=== PATIENT | female | born 1995 | race Caucasian/White ===

== ENCOUNTER 2016-10-28 15:24 | Emergency (ER) | payer MEDICAID ==
[~2016-10-28] VITALS: Ht 162.6 cm; Wt 57.6 kg
[~2016-10-28 15:24] MED LIST: AUGMENTIN PO; AURALGAN LEFT EAR; D ME PO; IBUP-1481 PO
--- NOTE | 2016-10-28 16:30 | NUR ---
Patient discharged to home in stable conditon. Written and verbal after care instructions given. Patient verbalizes understanding of instructions.
== END 2016-10-28 16:31 | disposition home or self-care (01) ==
LOC: ER 15:24
DX: S90.112A Contusion of left great toe without damage to nail, initial encounter (principal); X58.XXXA Exposure to other specified factors, initial encounter; Y93.89 Activity, other specified; Y99.8 Other external cause status; Y92.89 Other specified places as the place of occurrence of the external cause
CPT/HCPCS: 73630; A4663

== ENCOUNTER 2017-01-07 13:49 | Emergency (ER) | payer MEDICAID ==
[~2017-01-07] VITALS: Ht 162.6 cm; Wt 57.6 kg
[~2017-01-07 13:49] MED LIST changes: -AUGMENTIN PO; -AURALGAN LEFT EAR; -D ME PO; -IBUP-1481 PO; +IBUP-1953 PO
--- NOTE | 2017-01-07 14:47 | NUR ---
Patient discharged to home in stable conditon. Written and verbal after care instructions given. Patient verbalizes understanding of instructions.
== END 2017-01-07 14:48 | disposition home or self-care (01) ==
LOC: ER 13:53
DX: S63.619A Unspecified sprain of unspecified finger, initial encounter (principal); X58.XXXA Exposure to other specified factors, initial encounter; Y93.89 Activity, other specified; Y99.8 Other external cause status; Y92.89 Other specified places as the place of occurrence of the external cause
CPT/HCPCS: 73130; A4663

== ENCOUNTER 2017-08-05 20:50 | Emergency (ER) | payer MEDICAID ==
--- NOTE | 2017-08-05 21:55 | NUR ---
CALLED FOR PT NO ANS LWBT
== END 2017-08-05 23:13 | disposition left against medical advice (07) ==
LOC: ER 20:52
DX: Z53.21 Procedure and treatment not carried out due to patient leaving prior to being seen by health care provider (principal)

== ENCOUNTER 2017-08-06 11:43 | Emergency (ER) | payer MEDICAID ==
[~2017-08-06] VITALS: Ht 162.6 cm; Wt 59.0 kg
--- NOTE | 2017-08-06 11:59 | NUR ---
Patient discharged to home in stable conditon. Written and verbal after care instructions given. Patient verbalizes understanding of instructions.
== END 2017-08-06 12:00 | disposition home or self-care (01) ==
LOC: ER 11:45
DX: M94.0 Chondrocostal junction syndrome [Tietze] (principal)
CPT/HCPCS: A4663

== ENCOUNTER 2018-01-05 22:53 | Emergency (ER) | payer MEDICAID ==
[~2018-01-05] VITALS: Ht 162.6 cm; Wt 60.8 kg
--- NOTE | 2018-01-05 23:10 | NUR ---
DR. ROWLAND AT BEDSIDE FOR MSE.
[2018-01-05] MEDS ORDERED: DICYCLOMINE HCL 10 MG/5 ML UDC LIQ PO ONE (23:15)
[2018-01-05] MEDS ORDERED: MAG HYDROX/AL HYDROX/SIMETH 30 ML LIQUID UDC PO ONE (23:15)
[2018-01-05] MEDS ORDERED: DICYCLOMINE HCL 10 MG/5 ML UDC LIQ ONE (23:19)
[2018-01-05] MEDS ORDERED: MAG HYDROX/AL HYDROX/SIMETH 30 ML LIQUID UDC ONE ×2 (23:20)
[2018-01-05 23:48] VITALS: BP 106/64
== END 2018-01-05 23:49 | disposition home or self-care (01) ==
LOC: ER 22:54
DX: K21.0 Gastro-esophageal reflux disease with esophagitis (principal); Z79.1 Long term (current) use of non-steroidal anti-inflammatories (NSAID)
CPT/HCPCS: 99283; A4663

== ENCOUNTER 2018-08-23 20:26 | Emergency (ER) | payer MEDICAID ==
[~2018-08-23] VITALS: Ht 162.6 cm; Wt 67.1 kg
[2018-08-23] MEDS ORDERED: IBUPROFEN 600 MG TABLET PO ONE (21:30)
[2018-08-23] MEDS ORDERED: IBUPROFEN 600 MG TABLET ONE (21:31)
--- NOTE | 2018-08-23 21:32 | NUR ---
Patient discharged to home in stable conditon. Written and verbal after care instructions given. Patient verbalizes understanding of instructions.
== END 2018-08-23 21:33 | disposition home or self-care (01) ==
LOC: ER 20:27
DX: B34.9 Viral infection, unspecified (principal); Z79.1 Long term (current) use of non-steroidal anti-inflammatories (NSAID)
CPT/HCPCS: A4663

== ENCOUNTER 2018-10-08 19:36 | Emergency (ER) | payer MEDICAID ==
[~2018-10-08] VITALS: Ht 162.6 cm; Wt 68.5 kg
--- NOTE | 2018-10-08 19:48 | NUR ---
DR. CLARK AT BEDSIDE FOR MSE.
[2018-10-08 19:54] VITALS: BP 108/69
--- NOTE | 2018-10-08 19:54 | NUR ---
Patient discharged to home in stable conditon. Written and verbal after care instructions given. Patient verbalizes understanding of instructions. PATIENT LEFT WITH STABLE GAIT.
== END 2018-10-08 19:54 | disposition home or self-care (01) ==
LOC: ER 19:36
DX: L73.9 Follicular disorder, unspecified (principal); F17.200 Nicotine dependence, unspecified, uncomplicated
CPT/HCPCS: A4663

== ENCOUNTER 2019-01-29 19:35 | Emergency (ER) | payer MEDICAID ==
[~2019-01-29] VITALS: Ht 162.6 cm; Wt 67.6 kg
[2019-01-29] MEDS ORDERED: LANSOPRAZOLE 30 MG (19:58)
[2019-01-29] MEDS ORDERED: ACETAMINOPHEN 325 MG TABLET (19:59)
--- NOTE | 2019-01-29 20:08 | NUR ---
Patient ambulated with stable gait. A/Ox4. Speech is clear, speaks in complete sentences. No neuro deficits. Patient came for c/o diarrhea since Sunday. Patient denies any abd pain, but reports having some nausea. Patient has taken Imodium but states that it did not help.
--- NOTE | 2019-01-29 20:33 | NUR ---
Patient discharged to home in stable conditon. Written and verbal after care instructions given. Patient verbalizes understanding of instructions. Patient ambulated with stable gait.
[2019-01-29 20:51] VITALS: BP 121/78
== END 2019-01-29 20:52 | disposition home or self-care (01) ==
LOC: ER 19:37
DX: R19.7 Diarrhea, unspecified (principal); R51 Headache; Z79.899 Other long term (current) drug therapy
CPT/HCPCS: A4663

== ENCOUNTER 2019-02-23 10:37 | Emergency (ER) | payer MEDICAID ==
[~2019-02-23] VITALS: Ht 162.6 cm; Wt 68.0 kg
[~2019-02-23 10:37] MED LIST changes: +ACETAMINOPHEN 325 MG TABLET; -IBUP-1953 PO; +LANSOPRAZOLE 30 MG
--- NOTE | 2019-02-23 11:08 | NUR ---
Patient discharged to home in stable conditon. Written and verbal after care instructions given. Patient verbalizes understanding of instructions.
== END 2019-02-23 11:10 | disposition home or self-care (01) ==
LOC: ER 10:37
DX: K08.89 Other specified disorders of teeth and supporting structures (principal); Z79.899 Other long term (current) drug therapy
CPT/HCPCS: A4663